=== PATIENT | male | born 1945 | race Caucasian/White ===

== ENCOUNTER 2018-02-11 08:20 | Emergency (ER) | payer MEDICARE, OTHER ==
[~2018-02-11] VITALS: Ht 182.9 cm; Wt 72.0 kg
[~2018-02-11 08:20] MED LIST: ALBU8.5H8 INH; CARV-50 PO; CHOL200026 PO; CYAN100087 PO; LACT1CAP65 PO; METF500T PO; OMEG1CAP2 PO; [UNRECOGNIZED DRUG - OTHER] PO; [UNRECOGNIZED DRUG - OTHER] PO
[2018-02-11 08:57] LABS: BASOPHILS # (AUTO) 0.1 X10'3 (0-0.2); BASOPHILS % (AUTO) 0.8 % (0-1); EOSINOPHILS # (AUTO) 0.3 X10'3 (0-0.9); EOSINOPHILS % (AUTO) 4.3 % (0-6); HEMATOCRIT 49.9 % (42.0-52.0); HEMOGLOBIN 16.5 g/dl (14.0-17.9); LYMPHOCYTES # (AUTO) 1.5 X10'3 (1.1-4.8); LYMPHOCYTES % (AUTO) 20.2 % (21-51); MEAN CORPUSCULAR HEMOGLOBIN 30.1 PG (27.0-31.0); MEAN CORPUSCULAR HGB CONC 33.1 % (33.0-36.5); MEAN CORPUSCULAR VOLUME 90.8 FL (78-98); MEAN PLATELET VOLUME 7.1 FL (7.4-10.4); MONOCYTES # (AUTO) 0.6 X10'3 (0-0.9); MONOCYTES % (AUTO) 8.9 % (2-12); NEUTROPHILS # (AUTO) 4.8 X10'3 (1.8-7.7); NEUTROPHILS % (AUTO) 65.8 % (42-75); PLATELET COUNT 165 X10'3 (140-440); RED BLOOD COUNT 5.49 X10'6 (4.70-6.10); RED CELL DISTRIBUTION WIDTH 13.3 % (11.5-14.5); WHITE BLOOD COUNT 7.2 X10'3 (4.5-11.0)
[2018-02-11 09:12] LABS: ALANINE AMINOTRANSFERASE 23 U/L (12-78); ALBUMIN 3.6 G/DL (3.4-5.0); ALKALINE PHOSPHATASE 68 IU/L (46-116); ANION GAP 12 (8-16); ASPARTATE AMINO TRANSFERASE 14 U/L (10-37); BILIRUBIN,TOTAL 0.7 MG/DL (0.1-1.0); BLOOD UREA NITROGEN 17 MG/DL (7-18); BUN/CREATININE RATIO 14.4 (5.4-32.0); CHLORIDE 104 MMOL/L (99-107); CREATININE 1.18 MG/DL (0.60-1.10); GLUCOSE 167 MG/DL (70-104); POTASSIUM 3.9 MMOL/L (3.5-5.1); SODIUM 144 MMOL/L (135-145); TOTAL CARBON DIOXIDE 28.1 MMOL/L (24-32); TOTAL PROTEIN 7.1 G/DL (6.4-8.2); eGFR 60 ML/MIN
[2018-02-11 10:19] VITALS: BP 147/80
[2018-02-11 11:49] LABS: INR 1.1 INR; PARTIAL THROMBOPLASTIN TIME 28 SECONDS (22-32); PROTHROMBIN TIME 11.3 SECONDS (9.0-12.0)
== END 2018-02-11 10:30 | disposition home or self-care (01) ==
LOC: ER 08:20
DX: K59.00 Constipation, unspecified (principal); N28.89 Other specified disorders of kidney and ureter; I25.10 Atherosclerotic heart disease of native coronary artery without angina pectoris; E78.00 Pure hypercholesterolemia, unspecified; I10 Essential (primary) hypertension; I25.2 Old myocardial infarction; K21.9 Gastro-esophageal reflux disease without esophagitis; Z86.73 Personal history of transient ischemic attack (TIA), and cerebral infarction without residual deficits; Z98.61 Coronary angioplasty status; Z98.890 Other specified postprocedural states; Z79.899 Other long term (current) drug therapy
CPT/HCPCS: 36415; 71045; 74176; 80053; 84484; 85025; 85610; 85730; 93005; 99285

== ENCOUNTER 2018-03-04 14:45 | Observation (INO) | payer MEDICARE, OTHER ==
[~2018-03-04] VITALS: Ht 182.9 cm; Wt 83.6 kg
[2018-03-04] MEDS ORDERED: normal saline 1000ml 1,000 ML IV ONE (15:00)
[2018-03-04 15:35] LABS: BASOPHILS % (AUTO) 0.6 % (0-1); EOSINOPHILS # (AUTO) 0.2 X10'3 (0-0.9); EOSINOPHILS % (AUTO) 2.9 % (0-6); HEMATOCRIT 48.7 % (42.0-52.0); HEMOGLOBIN 16.5 g/dl (14.0-17.9); LYMPHOCYTES # (AUTO) 1.2 X10'3 (1.1-4.8); LYMPHOCYTES % (AUTO) 15.8 % (21-51); MEAN CORPUSCULAR HEMOGLOBIN 30.6 PG (27.0-31.0); MEAN CORPUSCULAR HGB CONC 33.8 % (33.0-36.5); MEAN CORPUSCULAR VOLUME 90.3 FL (78-98); MEAN PLATELET VOLUME 7.5 FL (7.4-10.4); MONOCYTES # (AUTO) 0.6 X10'3 (0-0.9); MONOCYTES % (AUTO) 7.6 % (2-12); NEUTROPHILS # (AUTO) 5.4 X10'3 (1.8-7.7); NEUTROPHILS % (AUTO) 73.1 % (42-75); PLATELET COUNT 180 X10'3 (140-440); RED BLOOD COUNT 5.39 X10'6 (4.70-6.10); RED CELL DISTRIBUTION WIDTH 13.1 % (11.5-14.5); WHITE BLOOD COUNT 7.4 X10'3 (4.5-11.0)
[2018-03-04] MEDS ORDERED: normal saline 1000ML IV soln IVB ONE (15:35)
[2018-03-04 15:52] LABS: INR 1.1 INR; PARTIAL THROMBOPLASTIN TIME 27 SECONDS (22-32); PROTHROMBIN TIME 11.1 SECONDS (9.0-12.0)
[2018-03-04 15:55] LABS: ALANINE AMINOTRANSFERASE 17 U/L (12-78); ALBUMIN 3.4 G/DL (3.4-5.0); ALBUMIN/GLOBULIN RATIO 0.9 (1.1-1.5); ALKALINE PHOSPHATASE 73 IU/L (46-116); ANION GAP 11 (8-16); ASPARTATE AMINO TRANSFERASE 8 U/L (10-37); BILIRUBIN,TOTAL 0.4 MG/DL (0.1-1.0); BLOOD UREA NITROGEN 23 MG/DL (7-18); BUN/CREATININE RATIO 18.9 (5.4-32.0); CHLORIDE 105 MMOL/L (99-107); CREATININE 1.22 MG/DL (0.60-1.10); GLUCOSE 193 MG/DL (70-104); SODIUM 142 MMOL/L (135-145); TOTAL CARBON DIOXIDE 26.5 MMOL/L (24-32); eGFR 58 ML/MIN
[2018-03-04 15:59] LABS: POTASSIUM 3.7 MMOL/L (3.5-5.1)
[2018-03-04 16:04] LABS: AMYLASE 56 U/L (25-115); LIPASE 200 U/L (73-393); MAGNESIUM 1.9 MG/DL (1.5-2.4)
[2018-03-04] MEDS ORDERED: morphine 2 MG/ML inj. syringe IV PRN (17:15)
[2018-03-04] MEDS ORDERED: acetaminophen 325mg tablet PO PRN (17:15)
[2018-03-04] MEDS ORDERED: magnesium Cl slow-release 64mg tablet PO PRN (17:15)
[2018-03-04] MEDS ORDERED: HYDROcodone/acetaminophen 5mg/325mg tablet PO PRN (17:15)
[2018-03-04] MEDS ORDERED: ondansetron/PF 4mg/2ml inj IV PRN (17:15)
[2018-03-04] MEDS ORDERED: magnesium 1gm/100ml D5W IVPB 100 ML IV PRN (17:15)
[2018-03-04] MEDS ORDERED: potassium Cl 20 mEq SR tablet PO PRN ×2 (17:15)
[2018-03-04] MEDS ORDERED: magnesium 4gm in 100ml NS 100 ML IV PRN (17:15)
[2018-03-04] MEDS ORDERED: potassium Cl 40MEQ/NS 500ml 500 ML IV PRN ×2 (17:15)
[2018-03-04] MEDS ORDERED: docusate sod 100mg capsule PO PRN (17:15)
[2018-03-04] MEDS ORDERED: glucagon, human recombinant 1mg kit SUBCUT PRN (17:20)
[2018-03-04] MEDS ORDERED: dextrose ORAL solution 15 GM/59 ML bottle PO PRN ×2 (17:20)
[2018-03-04] MEDS ORDERED: insulin Lispro (HumaLOG) vial - multi-dose SQ SCH (17:20)
[2018-03-04] MEDS ORDERED: MESSAGE TO PHARMACY PO ONE (17:20)
[2018-03-04] MEDS ORDERED: dextrose 50%-water 50ml dispensing syringe IV PRN ×2 (17:20)
[2018-03-04] MEDS: diatr meglu/diatrizoate 30ml oral sol.-(3 dose) bottle PO SCH ×3 (17:37→22:59)
[2018-03-04] MEDS: dextrose 5%-1/2 normal saline 1,000 ML IV SCH (17:43)
[2018-03-04 20:45] VITALS: BP 169/69
[2018-03-04 21:00] VITALS: BP_SYST 163; BP_SYST 171; BP_SYST 175; BP_DIAS 65; BP_DIAS 69
[2018-03-04] MEDS ORDERED: temazepam 15mg capsule PO PRN (21:00)
[2018-03-04] MEDS ORDERED: insulin glargine (Lantus) pen - multi-dose SQ SCH (21:00)
[2018-03-04] MEDS: carVEDilol 12.5mg tablet PO SCH (21:38)
[2018-03-04] MEDS: heparin, porcine 5000 units/ml vial SQ SCH (21:39)
[2018-03-05] VITALS: BP 122/68
[2018-03-05 03:34] LABS: BASOPHILS % (AUTO) 0.8 % (0-1); EOSINOPHILS # (AUTO) 0.2 X10'3 (0-0.9); HEMOGLOBIN 14.1 g/dl (14.0-17.9); LYMPHOCYTES # (AUTO) 1.6 X10'3 (1.1-4.8); LYMPHOCYTES % (AUTO) 25.3 % (21-51); MEAN CORPUSCULAR HEMOGLOBIN 30.5 PG (27.0-31.0); MEAN CORPUSCULAR HGB CONC 33.6 % (33.0-36.5); MEAN CORPUSCULAR VOLUME 90.7 FL (78-98); MONOCYTES # (AUTO) 0.7 X10'3 (0-0.9); MONOCYTES % (AUTO) 10.4 % (2-12); NEUTROPHILS # (AUTO) 3.8 X10'3 (1.8-7.7); NEUTROPHILS % (AUTO) 60.5 % (42-75); PLATELET COUNT 150 X10'3 (140-440); RED BLOOD COUNT 4.63 X10'6 (4.70-6.10); RED CELL DISTRIBUTION WIDTH 13.2 % (11.5-14.5); WHITE BLOOD COUNT 6.3 X10'3 (4.5-11.0)
[2018-03-05 03:45] LABS: ALANINE AMINOTRANSFERASE 19 U/L (12-78); ALBUMIN 2.9 G/DL (3.4-5.0); ALKALINE PHOSPHATASE 55 IU/L (46-116); ANION GAP 9 (8-16); ASPARTATE AMINO TRANSFERASE 13 U/L (10-37); BILIRUBIN,TOTAL 0.3 MG/DL (0.1-1.0); BLOOD UREA NITROGEN 16 MG/DL (7-18); BUN/CREATININE RATIO 14.7 (5.4-32.0); CALCIUM 8.7 MG/DL (8.5-10.1); CHLORIDE 107 MMOL/L (99-107); CREATININE 1.09 MG/DL (0.60-1.10); GLUCOSE 147 MG/DL (70-104); POTASSIUM 3.8 MMOL/L (3.5-5.1); SODIUM 142 MMOL/L (135-145); TOTAL CARBON DIOXIDE 26.5 MMOL/L (24-32); TOTAL PROTEIN 5.8 G/DL (6.4-8.2); eGFR 66 ML/MIN
[2018-03-05 03:48] LABS: MAGNESIUM 1.8 MG/DL (1.5-2.4)
[2018-03-05] MEDS: dextrose 5%-1/2 normal saline 1,000 ML IV SCH (07:47)
[2018-03-05] MEDS: carVEDilol 12.5mg tablet PO SCH (07:47)
[2018-03-05] MEDS: heparin, porcine 5000 units/ml vial SQ SCH (07:47)
[2018-03-05 08:00] VITALS: BP_SYST 145; BP_SYST 148; BP_SYST 149; BP_SYST 152; BP_DIAS 72; BP_DIAS 73; BP_DIAS 75
[2018-03-05] MEDS ORDERED: pantoprazole 40 MG vial IV SCH (08:00)
[2018-03-05] MEDS ORDERED: K and/or MAG REPLACEMENT MC SCH (08:00)
[2018-03-05 12:00] VITALS: BP 150/68
== END 2018-03-05 15:18 | disposition home or self-care (01) ==
LOC: ER 14:45 → ED HOLD 17:13 → SUR 3N 20:19
PROVIDERS: ADMIT Internal Medicine; ATTEND Internal Medicine
DX: R42 Dizziness and giddiness (principal); R10.9 Unspecified abdominal pain; E11.9 Type 2 diabetes mellitus without complications; E78.5 Hyperlipidemia, unspecified; E86.0 Dehydration; F03.90 Unspecified dementia, unspecified severity, without behavioral disturbance, psychotic disturbance, mood disturbance, and anxiety; I10 Essential (primary) hypertension; I25.10 Atherosclerotic heart disease of native coronary artery without angina pectoris; I25.2 Old myocardial infarction; K21.9 Gastro-esophageal reflux disease without esophagitis; K59.09 Other constipation; N28.9 Disorder of kidney and ureter, unspecified; Z86.73 Personal history of transient ischemic attack (TIA), and cerebral infarction without residual deficits; Z87.891 Personal history of nicotine dependence; Z95.5 Presence of coronary angioplasty implant and graft
CPT/HCPCS: 36415; 70450; 74018; 74176; 80053; 82150; 82948; 83036; 83605; 83690; 83735; 83880; 84484; 85025; 85610; 85730; 86885; 86900; 86901; 87040; 87070; 93005; 96361; 96372; 96374; 99285; C9113; G0378; J1644; Q9963; J1815

== ENCOUNTER 2018-05-13 05:53 | Emergency (ER) | payer MEDICARE, OTHER ==
[~2018-05-13] VITALS: Ht 157.5 cm; Wt 84.1 kg
--- NOTE | 2018-05-13 06:27 | NUR ---
PATIENT RECEIVED ON BED AWAKE,SWALLOW TEST PERFORMED WITH SOME SIPS OF WATER,PATIENT DENIES DIFFICULTY SWALLOWING.
--- NOTE | 2018-05-13 06:28 | NUR ---
AWAITING FOR PATIENT TO BE SEEN BY .
[2018-05-13] MEDS ORDERED: NYST1000 PO (07:11)
[2018-05-13 07:27] VITALS: BP 151/87
== END 2018-05-13 07:28 | disposition home or self-care (01) ==
LOC: ER 05:53
DX: K14.3 Hypertrophy of tongue papillae (principal); R06.02 Shortness of breath; I25.10 Atherosclerotic heart disease of native coronary artery without angina pectoris; E78.00 Pure hypercholesterolemia, unspecified; I10 Essential (primary) hypertension; I25.2 Old myocardial infarction; K21.9 Gastro-esophageal reflux disease without esophagitis; E11.9 Type 2 diabetes mellitus without complications; Z86.73 Personal history of transient ischemic attack (TIA), and cerebral infarction without residual deficits; Z98.61 Coronary angioplasty status; Z79.84 Long term (current) use of oral hypoglycemic drugs; Z79.899 Other long term (current) drug therapy
CPT/HCPCS: 99283